=== PATIENT | female | born 1990 | race Caucasian/White ===

== ENCOUNTER 2023-06-17 09:34 | Emergency (ER) | payer MEDICAID, SELFPAY ==
[2023-06-17 09:51] VITALS: BP 156/102; PULSE 92; RESP 18; TEMP 37.2; O2SAT 99; BMI 41.3
--- NOTE | 2023-06-17 09:57 | W.ED.DENTAL ---
HPI - Dental/Oral General: Chief complaint: Dental/Oral Stated complaint: face pain and swelling, fever Time Seen by Provider: 06/17/23 09:46 History of Present Illness: 32-year-old female with history of very poor dentition who has had her top teeth removed and has dentures and is planning on the bottom teeth soon. Over the last 3 to 4 days she has developed pain and swelling in her jaw. Right side. No specific tooth pain. She does have quite a bit of swelling there. She says this morning she had a fever. Hurts to open her mouth. Review of Systems Narrative: Constitutional symptoms: Negative except as documented in HPI. Skin symptoms: Negative except as documented in HPI. Eye symptoms: Negative except as documented in HPI. ENMT symptoms: Negative except as documented in HPI. Respiratory symptoms: Negative except as documented in HPI. Cardiovascular symptoms: Negative except as documented in HPI. Gastrointestinal symptoms: Negative except as documented in HPI. Genitourinary symptoms: Negative except as documented in HPI. Musculoskeletal symptoms: Negative except as documented in HPI. Neurologic symptoms: Negative except as documented in HPI. Psychiatric symptoms: Negative except as documented in HPI. Endocrine symptoms: Negative except as documented in HPI. PFS ED PFSH: Medical History Post-traumatic stress disorder, chronic Social History (Updated 12/27/22 @ 11:21 by Jeana Ricardo LPN) Smoking and tobacco/nicotine status: former use of tobacco/nicotine Quit status (tobacco/nicotine): has quit using Year quit tobacco: 2018 Alcohol intake: never Substance/Drug Use: former Adopted: No Caregiver/support person: No Lives independently: No Household members: spouse and children Marital status: service: No Current occupational status: employed Sexually active: Yes Do you think of yourself as: Straight/Heterosexual Current gender identity: Female Physical Exam Narrative: EXAM NARRATIVE: General: Alert, no acute distress. Skin: warm and dry Head: Normocephalic Neck: Trachea midline Eye: Extraocular movements are intact. Ears, nose, mouth and throat: Oral mucosa moist, poor dentition swelling along the right jaw diffusely Respiratory: Respirations are non-labored Musculoskeletal: Normal ROM Neurological: Alert and oriented to person, place, time, and situation, No focal neurological deficit observed. Psychiatric: Cooperative, appropriate mood & affect. Course Vital Signs: Vital signs: Vital Signs Temperature 98.9 F 06/17/23 09:51 Pulse Rate 92 06/17/23 09:51 Respiratory Rate 18 06/17/23 09:51 Blood Pressure 156/102 06/17/23 09:51 Pulse Oximetry 99 06/17/23 09:51 MDM - Dental/Oral Medical Decision Making Treating for dental infection. Recommend dental follow-up No radiology studies performed this visit Other Data Assessment and plan: -IV Toradol, IV clindamycin and IV fluids for mild dehydration because she is having trouble eating - Discharged home - Discussed plan with patient. Answered any questions. - Evaluation and treatment of this problem were appropriate in the emergency setting. Discharge Plan Discharge Patient Disposition: Home Clinical Impression: Dental abscess Condition: Stable Prescriptions: New clindamycin HCl 300 mg capsule 600 mg PO Q8H 10 Days Qty: 60 0RF diclofenac sodium 50 mg tablet,delayed release (DR/EC) 50 mg PO Q12H Qty: 20 0RF No Action acetaminophen 325 mg Tablet 975 mg PO QID PRN (Reason: PAIN/FEVER) Discharge Orders: Discharge ED (Routine); Ordered 06/17/23 Ordered By: Annie Russo Discharge Diet: Advance as tolerated Discharge Activity: Increase activity as tolerated Patient Instructions: Dental Abscess (ED) Activity Restrictions/Additional Instructions: Please follow-up with a dentist to soon as possible. You have been screened and evaluated and felt safe for discharge. Health conditions do change or evolve sometimes and as such it is important that you follow up with your Primary Doctor to be re checked, 3-5 days is a general good time frame for follow up. You are always welcome to return to the ED for re assessment if your symptoms are worsening or you have new concerns Coding Level of Care Code ED [employer] for [employer]
[2023-06-17] MEDS: ketorolac 30 mg/mL INJ IVP (11:39)
[2023-06-17] MEDS: sodium chloride 0.9% 1,000 ML 999 ML IV (11:41)
[2023-06-17] MEDS: clindamycin 600 MG/50 ML PREMIX 100 MG IV (11:42)
== END 2023-06-17 13:26 | disposition home or self-care (01) ==
PROVIDERS: Emergency Provider Emergency Medicine
DX: K04.7 Periapical abscess without sinus (principal); Z87.891 Personal history of nicotine dependence
CPT/HCPCS: 96365; 96375; 99285; J1885; J3490; J7030